=== PATIENT | male | born 1935 | race Caucasian/White ===

== ENCOUNTER 2021-07-22 07:37 | Emergency (ER) | payer OTHER ==
[~2021-07-22] VITALS: Ht 167.6 cm; Wt 65.8 kg
[2021-07-22 08:26] LABS: BASOPHIL 0.8 % (0-2); EOSINOPHIL 5.1 % (0-7); HCT 43.8 % (42.0-52.0); HGB 14.1 g/dl (13.2-18.0); LYMPHOCYTE 22.6 % (15-48); MCH 30.9 pg (25.0-31.0); MCHC 32.2 g/dL (32.0-36.0); MCV 95.8 fL (78.0-100.0); MONOCYTE 12.5 % (0-12); MPV 10.3 fL (6.0-9.5); NEUTROPHIL 58.6 % (41-80); NRBC 0; PLT 288 K/uL (150-400); RBC 4.57 M/uL (4.70-6.00); RDW 13.9 % (11.5-14.0); WBC 7.8 K/uL (4.0-10.5)
[2021-07-22 08:36] LABS: BILIRUBIN NEGATIVE (NEGATIVE); BLOOD TRACE-INTACT Ery/uL (NEGATIVE); CLARITY CLEAR (CLEAR); COLOR YELLOW (YELLOW); GLUCOSE (U) NORMAL (NORMAL); LEUKOCYTES 1+ Leu/uL (NEGATIVE); NITRITE POSITIVE (NEGATIVE); PROTEIN NEGATIVE (NEGATIVE); SPECIFIC GRAVITY 1.025 (1.001-1.030); UROBILINOGEN 0.2 mg/dL (0.2-1.0)
[2021-07-22 08:54] LABS: ALBUMIN 3.1 g/dL (3.4-5.0); BILIRUBIN - TOTAL 0.5 mg/dL (0.2-1.0); BUN/CREAT RATIO (CALC) 15.2 RATIO; CREATININE 1.51 mg/dL (0.67-1.17); GLOBULIN (CALCULATION) 3.6 g/dL; POTASSIUM 4.8 mmol/L (3.5-5.1); TOTAL PROTEIN 6.7 g/dL (6.4-8.2)
[2021-07-22 08:59] LABS: LACTIC ACID 1.1 mmol/L (0.4-1.9)
[2021-07-22 09:05] LABS: BACTERIA 1+; SQUAMOUS EPITHELIAL CELLS RARE; URINARY RBC RARE
[2021-07-22] MEDS ORDERED: KEFLEX250 MG PO (09:15)
== END 2021-07-22 09:40 | disposition home or self-care (01) ==
LOC: FER 07:37
PROVIDERS: Emergency Medicine Emergency Medical Services
DX: N39.0 Urinary tract infection, site not specified (principal); F02.80 Dementia in other diseases classified elsewhere, unspecified severity, without behavioral disturbance, psychotic disturbance, mood disturbance, and anxiety; I12.9 Hypertensive chronic kidney disease with stage 1 through stage 4 chronic kidney disease, or unspecified chronic kidney disease; N18.9 Chronic kidney disease, unspecified; Z88.7 Allergy status to serum and vaccine
CPT/HCPCS: 36415; 70450; 71045; 80053; 81001; 82550; 83605; 84145; 84484; 85025; 87076; 87088; 87186; 93005

== ENCOUNTER 2022-01-07 19:21 | Emergency (ER) | payer OTHER ==
[~2022-01-07 19:21] MED LIST: KEFLEX250 MG PO
== END 2022-01-07 23:55 | disposition home or self-care (01) ==
LOC: FER 19:21
DX: S62.645A Nondisplaced fracture of proximal phalanx of left ring finger, initial encounter for closed fracture (principal); I10 Essential (primary) hypertension; F03.90 Unspecified dementia, unspecified severity, without behavioral disturbance, psychotic disturbance, mood disturbance, and anxiety; W19.XXXA Unspecified fall, initial encounter
CPT/HCPCS: 73130

== ENCOUNTER 2022-01-09 12:30 | Inpatient (IN) | payer OTHER ==
[~2022-01-09] VITALS: Ht 182.9 cm; Wt 67.2 kg
[2022-01-09 13:36] LABS: BASOPHIL 0.5 % (0-2); EOSINOPHIL 3.8 % (0-7); HCT 40.8 % (42.0-52.0); HGB 13.3 g/dl (13.2-18.0); LYMPHOCYTE 15.6 % (15-48); MCH 31.1 pg (25.0-31.0); MCHC 32.6 g/dL (32.0-36.0); MCV 95.6 fL (78.0-100.0); MONOCYTE 8.4 % (0-12); MPV 11.3 fL (6.0-9.5); NEUTROPHIL 71.4 % (41-80); NRBC 0; PLT 227 K/uL (150-400); RBC 4.27 M/uL (4.70-6.00); RDW 14.9 % (11.5-14.0); WBC 6.6 K/uL (4.0-10.5)
[2022-01-09 13:54] LABS: BUN/CREAT RATIO (CALC) 20.6 RATIO; CREATININE 1.36 mg/dL (0.67-1.17)
[2022-01-09 14:40] LABS: BILIRUBIN NEGATIVE (NEGATIVE); BLOOD TRACE-INTACT Ery/uL (NEGATIVE); CLARITY CLEAR (CLEAR); COLOR YELLOW (YELLOW); GLUCOSE (U) NORMAL (NORMAL); LEUKOCYTES NEGATIVE Leu/uL (NEGATIVE); NITRITE NEGATIVE (NEGATIVE); PROTEIN NEGATIVE (NEGATIVE)
[2022-01-09 15:01] LABS: MUCOUS TRACE; SQUAMOUS EPITHELIAL CELLS RARE; URINARY WBC RARE
[2022-01-09 18:04] LABS: INR 1.07 (0.9-1.2); PROTHROMBIN TIME 13.3 SECONDS (11.8-13.4); PTT 32.8 SECONDS (24.4-34.7)
[2022-01-09 18:09] LABS: BASOPHIL 0.1 % (0-2); EOSINOPHIL 0.1 % (0-7); HCT 36.9 % (42.0-52.0); HGB 12.2 g/dl (13.2-18.0); LYMPHOCYTE 3.6 % (15-48); MCH 31.1 pg (25.0-31.0); MCHC 33.1 g/dL (32.0-36.0); MCV 94.1 fL (78.0-100.0); MONOCYTE 13.6 % (0-12); MPV 10.7 fL (6.0-9.5); NEUTROPHIL 82.2 % (41-80); NRBC 0; PLT 205 K/uL (150-400); RBC 3.92 M/uL (4.70-6.00)
[2022-01-09 18:10] LABS: WBC 13.6 K/uL (4.0-10.5)
[2022-01-09 23:59] LABS: HCT 37.1 % (42.0-52.0); HGB 12.1 g/dL (13.2-18.0)
[2022-01-10] MEDS ORDERED: AFRIN15 M1 INH (02:24)
[2022-01-10] MEDS ORDERED: XANAX0.5 MG PO (02:25)
[2022-01-10] MEDS ORDERED: AMLODIPINE BESY10 MG PO (02:26)
[2022-01-10] MEDS ORDERED: ASPIRIN325 MG PO (02:26)
[2022-01-10] MEDS ORDERED: LIPITOR40 MG PO (02:26)
[2022-01-10] MEDS ORDERED: VITAMIN D325 GM PO (02:27)
[2022-01-10] MEDS ORDERED: DEPAKOTE SPRIN125 M2 PO (02:28)
[2022-01-10] MEDS ORDERED: ATROVENT HFA12.9 GM INH (02:28)
[2022-01-10] MEDS ORDERED: PRINIVIL20 MG PO (02:29)
[2022-01-10] MEDS ORDERED: COLACE100 MG PO (02:29)
[2022-01-10] MEDS ORDERED: PROSCAR5 MG PO (02:29)
[2022-01-10] MEDS ORDERED: LOPRESSOR25 MG PO (02:32)
[2022-01-10] MEDS ORDERED: MILK OF MA400 MG/5 M PO (02:32)
[2022-01-10] MEDS ORDERED: MEMANTINE HCL E14 MG PO (02:32)
[2022-01-10] MEDS ORDERED: MIRALAX17 GM PO (02:33)
[2022-01-10] MEDS ORDERED: OMEPRAZOLE 20MG20 MG PO (02:34)
[2022-01-10] MEDS ORDERED: SILVADENE20 GM TOP (02:35)
[2022-01-10] MEDS ORDERED: ONDANSETRON HCL4 MG PO (02:35)
[2022-01-10] MEDS ORDERED: CARAFATE1 GM PO (02:36)
[2022-01-10] MEDS ORDERED: GAS RELIEF80 MG PO (02:36)
[2022-01-10] MEDS ORDERED: TRAZODONE HCL50 MG PO (02:37)
[2022-01-10] MEDS ORDERED: FLOMAX0.4 MG PO (02:37)
[2022-01-10] MEDS ORDERED: MEDICHOICE TRI1 EACH TOP (02:38)
[2022-01-10 09:06] LABS: BASOPHIL 0.2 % (0-2); EOSINOPHIL 0.1 % (0-7); HCT 40.5 % (42.0-52.0); LYMPHOCYTE 3.8 % (15-48); MCHC 32.1 g/dL (32.0-36.0); MCV 96.7 fL (78.0-100.0); MONOCYTE 11.6 % (0-12); NEUTROPHIL 83.8 % (41-80); NRBC 0; PLT 235 K/uL (150-400); RBC 4.19 M/uL (4.70-6.00); RDW 15.2 % (11.5-14.0); WBC 16.5 K/uL (4.0-10.5)
[2022-01-10 09:18] LABS: ALBUMIN 2.4 g/dL (3.4-5.0); BILIRUBIN - TOTAL 5.7 mg/dL (0.2-1.0); BUN/CREAT RATIO (CALC) 22.8 RATIO; CREATININE 1.23 mg/dL (0.67-1.17); GLOBULIN (CALCULATION) 3.9 g/dL; MAGNESIUM 1.9 mg/dL (1.8-2.4); POTASSIUM 4.6 mmol/L (3.5-5.1); TOTAL PROTEIN 6.3 g/dL (6.4-8.2)
[2022-01-10 12:42] LABS: HCT 36.1 % (42.0-52.0)
[2022-01-10 16:15] LABS: LACTIC ACID 1.3 mmol/L (0.4-1.9)
[2022-01-11 02:23] LABS: BASOPHIL 0.5 % (0-2); EOSINOPHIL 1.6 % (0-7); HCT 36.6 % (42.0-52.0); HGB 11.9 g/dl (13.2-18.0); LYMPHOCYTE 13.3 % (15-48); MCH 31.3 pg (25.0-31.0); MCHC 32.5 g/dL (32.0-36.0); MCV 96.3 fL (78.0-100.0); MONOCYTE 14.4 % (0-12); MPV 10.8 fL (6.0-9.5); NEUTROPHIL 69.8 % (41-80); NRBC 0; PLT 225 K/uL (150-400); RDW 15.8 % (11.5-14.0); WBC 10.4 K/uL (4.0-10.5)
[2022-01-11 02:30] LABS: INR 1.32 (0.9-1.2); PROTHROMBIN TIME 15.7 SECONDS (11.8-13.4)
[2022-01-11 02:41] LABS: ALBUMIN 2.3 g/dL (3.4-5.0); BILIRUBIN - DIRECT 2.3 mg/dL (0.00-0.20); BUN/CREAT RATIO (CALC) 21.1 RATIO; CREATININE 1.47 mg/dL (0.67-1.17); GLOBULIN (CALCULATION) 3.5 g/dL; POTASSIUM 4.6 mmol/L (3.5-5.1); TOTAL PROTEIN 5.8 g/dL (6.4-8.2)
--- NOTE | 2022-01-11 10:11 | NUR ---
PT MAY RETURN BACK TO [facility]. PLEASE CALL REPORT [phone] OR [phone]. FAX D/C SUMMARY TO [phone].
[2022-01-12 06:21] LABS: BASOPHIL 0.8 % (0-2); EOSINOPHIL 5.6 % (0-7); HCT 35.1 % (42.0-52.0); HGB 11.2 g/dl (13.2-18.0); LYMPHOCYTE 18.1 % (15-48); MCH 30.9 pg (25.0-31.0); MCHC 31.9 g/dL (32.0-36.0); MCV 96.7 fL (78.0-100.0); MONOCYTE 14.9 % (0-12); NEUTROPHIL 60.3 % (41-80); NRBC 0; PLT 232 K/uL (150-400); RBC 3.63 M/uL (4.70-6.00); RDW 15.1 % (11.5-14.0); WBC 7.5 K/uL (4.0-10.5)
[2022-01-12 06:37] LABS: INR 1.13 (0.9-1.2); PROTHROMBIN TIME 13.9 SECONDS (11.8-13.4)
[2022-01-12 06:51] LABS: ALBUMIN 2.1 g/dL (3.4-5.0); BILIRUBIN - DIRECT 0.5 mg/dL (0.00-0.20); BILIRUBIN - TOTAL 1.1 mg/dL (0.2-1.0); BUN/CREAT RATIO (CALC) 17.5 RATIO; CREATININE 1.37 mg/dL (0.67-1.17); GLOBULIN (CALCULATION) 3.7 g/dL; POTASSIUM 4.6 mmol/L (3.5-5.1); TOTAL PROTEIN 5.8 g/dL (6.4-8.2)
[2022-01-12] MEDS ORDERED: AUGMENTIN 500-1 EACH PO (08:07)
[2022-01-12] MEDS ORDERED: OMEPRAZOLE 20MG20 MG PO (08:25)
== END 2022-01-12 10:42 | DRG 377 ==
LOC: FER 12:30 → FICU 19:08
PROVIDERS: Emergency Medicine; Family Medicine; Nurse Practitioner; ADMIT Internal Medicine
DX: K92.0 Hematemesis (principal); G93.41 Metabolic encephalopathy; J96.01 Acute respiratory failure with hypoxia; A41.9 Sepsis, unspecified organism; S22.43XA Multiple fractures of ribs, bilateral, initial encounter for closed fracture; D62 Acute posthemorrhagic anemia; K56.41 Fecal impaction; Z66 Do not resuscitate; R00.1 Bradycardia, unspecified; I12.9 Hypertensive chronic kidney disease with stage 1 through stage 4 chronic kidney disease, or unspecified chronic kidney disease; N18.30 Chronic kidney disease, stage 3 unspecified; F41.1 Generalized anxiety disorder; W19.XXXA Unspecified fall, initial encounter; R74.8 Abnormal levels of other serum enzymes; R77.8 Other specified abnormalities of plasma proteins; I48.91 Unspecified atrial fibrillation; R60.0 Localized edema; F03.90 Unspecified dementia, unspecified severity, without behavioral disturbance, psychotic disturbance, mood disturbance, and anxiety; F32.9 Major depressive disorder, single episode, unspecified; K21.9 Gastro-esophageal reflux disease without esophagitis; I25.10 Atherosclerotic heart disease of native coronary artery without angina pectoris; N40.0 Benign prostatic hyperplasia without lower urinary tract symptoms; I35.8 Other nonrheumatic aortic valve disorders; E55.9 Vitamin D deficiency, unspecified; R31.9 Hematuria, unspecified; R29.6 Repeated falls; Z87.440 Personal history of urinary (tract) infections; Z86.14 Personal history of Methicillin resistant Staphylococcus aureus infection; Z88.5 Allergy status to narcotic agent; Z79.82 Long term (current) use of aspirin; Z79.899 Other long term (current) drug therapy
CPT/HCPCS: 36415; 70450; 71260; 80048; 80053; 80076; 81001; 82271; 83010; 83605; 83615; 83690; 83735; 83880; 84484; 85014; 85018; 85025; 85379; 85610; 85730; 86850; 86900; 86901; 87040; 93005; 93971; 96374; C9113; J2060; J2354; J2405; J2543; J7120; Q9967; U0002